=== PATIENT | male | born 1965 | race Caucasian/White ===

== ENCOUNTER 2017-03-29 03:36 | Inpatient (IN) | payer MEDICAID ==
[~2017-03-29] VITALS: Ht 175.3 cm; Wt 72.6 kg
[2017-03-29 03:42] VITALS: BP_SYST 102
[2017-03-29] MEDS ORDERED: NS 1000 ML BAG IV ONE (04:00)
[2017-03-29] MEDS ORDERED: ONDANSETRON HCL 4 MG/2 ML VIAL IVP ONE (04:15)
[2017-03-29] MEDS ORDERED: MORPHINE 2 MG/ML INJ. SYRINGE IVP ONE (04:15)
[2017-03-29 04:43] LABS: CALCIUM 9.2 mg/dL (8.4-11.0); CREATININE 1.19 mg/dL (0.55-1.30); POTASSIUM 4.2 mmol/L (3.5-5.1)
[2017-03-29 04:44] LABS: HEMATOCRIT 33.1 % (36-54); HEMOGLOBIN 10.6 g/dL (14.0-18.0); MEAN CORPUSCULAR HEMOGLOBIN 31 pg (27-31); MEAN CORPUSCULAR VOLUME 93 fL (79.0-98.0); RED BLOOD CELL COUNT(AUTO) 3.56 MIL/uL (4.2-6.2); WHITE BLOOD COUNT (AUTO) 10.3 K/uL (4.8-10.8)
[2017-03-29 04:45] LABS: MEAN CORPUSCULAR HGB CONC 33 % (32-36); PLATELET COUNT (AUTO) 316 K/uL (130-430); RED CELL DISTRIBUTION WIDTH 12.4 % (9.0-15.0)
[2017-03-29] MEDS ORDERED: PANTOPRAZOLE SODIUM 40 MG/VIAL (PROTONIX) IVP ONE (04:45)
[2017-03-29 04:46] LABS: EOSINOPHILS % (AUTO) 1.4 % (0.0-4.0)
[2017-03-29 04:47] LABS: ALBUMIN 3.4 g/dL (3.4-4.8); BASOPHILS % (AUTO) 0.9 % (0.0-2.0); LYMPHOCYTES % (AUTO) 22.1 % (20.5-51.5); NEUTROPHILS % (AUTO) 69.8 % (40.0-70.0); TOTAL BILIRUBIN 0.3 mg/dL (0.0-1.0)
[2017-03-29 04:48] LABS: BASOPHILS # (AUTO) 0.1 K/uL (0.0-0.2); EOSINOPHILS # (AUTO) 0.6 K/uL (0.0-0.4); LYMPHOCYTES # (AUTO) 2.3 K/uL (1.0-5.5); MONOCYTES # (AUTO) 0.6 K/uL (0.0-1.0); MONOCYTES % (AUTO) 5.8 % (1.7-9.3); NEUTROPHILS # (AUTO) 7.2 K/uL (1.8-7.7)
[2017-03-29 05:03] LABS: INR 1.1 (0.80-1.20); PROTHROMBIN TIME 10.8 SECS (9.5-12.5)
[2017-03-29] MEDS ORDERED: ONDANSETRON HCL 4 MG/2 ML VIAL IVP PRN (05:45)
[2017-03-29] MEDS ORDERED: ACETAMINOPHEN 325 MG TABLET PO PRN (05:45)
[2017-03-29 05:59] VITALS: BP_SYST 113
[2017-03-29 06:41] LABS: BILIRUBIN,URINE NEGATIVE (NEGATIVE); BLOOD, URINE NEGATIVE (NEGATIVE); CLARITY/URINE CLEAR (CLEAR); COLOR,URINE YELLOW (YELLOW); GLUCOSE,URINE NEGATIVE (NEGATIVE); KETONES,URINE NEGATIVE (NEGATIVE); LEUKOCYTE ESTERASE ,URINE NEGATIVE (NEGATIVE); NITRITE, URINE NEGATIVE (NEGATIVE); PH,URINE 6.5 (5.0-8.0); PROTEIN URINE NEGATIVE (NEGATIVE); UROBILINOGEN,URINE 0.2 (0.2-1.0)
[2017-03-29 07:03] LABS: FREE T4 (FREE THYROXINE) 0.6 ng/dL (0.6-1.6); PHOSPHORUS 2.9 mg/dL (2.7-4.5); THYROID STIMULATING HORMONE 2.75 uIu/mL (0.34-4.82)
[2017-03-29] MEDS: NACL 0.9% 1,000 ML IV SCH ×3 (07:23→22:11)
[2017-03-29 08:49] VITALS: BP_SYST 108
[2017-03-29] MEDS: DOCUSATE SODIUM 100 MG CAPSULE PO SCH ×2 (09:00→21:00)
[2017-03-29] MEDS: PIPERACILLIN/TAZO 3.375 GM in NS 50 ML IV SCH ×2 (09:13→13:39)
[2017-03-29] MEDS: PANTOPRAZOLE SODIUM 40 MG/VIAL (PROTONIX) IVP SCH (09:19)
[2017-03-29 12:05] VITALS: BP_SYST 100
[2017-03-29] MEDS ORDERED: BISACODYL 10 MG/SUPPOSITORY RC PRN (14:00)
[2017-03-29] MEDS ORDERED: LORazepam 2 MG/ML VIAL IVP PRN (14:00)
[2017-03-29] MEDS ORDERED: POTASSIUM CHLORIDE 20 MEQ TAB.PRT.SR PO PRN (14:00)
[2017-03-29] MEDS ORDERED: SIMETHICONE 80 MG TAB.CHEW PO PRN (14:00)
[2017-03-29] MEDS ORDERED: ZOLPIDEM TARTRATE 5 MG TABLET PO PRN (14:00)
[2017-03-29] MEDS: MORPHINE 2 MG/ML INJ. SYRINGE IVP PRN (14:01)
[2017-03-29 16:12] VITALS: BP_SYST 99
[2017-03-29] MEDS ORDERED: BISACODYL 5 MG TABLET.DR (DULCOLAX) PO ONE (17:00)
[2017-03-29] MEDS ORDERED: GOLYTELY / COLYTE SOLUTION 4 LITERS PO ONE (18:00)
[2017-03-29 20:00] VITALS: BP_SYST 108
[2017-03-30] VITALS: BP_SYST 112
[2017-03-30] MEDS: MORPHINE 2 MG/ML INJ. SYRINGE IVP PRN ×2 (01:03→21:01)
[2017-03-30 06:24] LABS: HEMOGLOBIN A1C 5.4 % (4.8-5.6)
[2017-03-30 06:52] LABS: BASOPHILS % (AUTO) 0.4 % (0.0-2.0); EOSINOPHILS # (AUTO) 0.3 K/uL (0.0-0.4); EOSINOPHILS % (AUTO) 3.1 % (0.0-4.0); HEMATOCRIT 26.9 % (36-54); HEMOGLOBIN 8.9 g/dL (14.0-18.0); LYMPHOCYTES # (AUTO) 2.8 K/uL (1.0-5.5); MEAN CORPUSCULAR HEMOGLOBIN 31 pg (27-31); MEAN CORPUSCULAR HGB CONC 33 % (32-36); MEAN CORPUSCULAR VOLUME 94 fL (79.0-98.0); MONOCYTES # (AUTO) 0.4 K/uL (0.0-1.0); MONOCYTES % (AUTO) 4.4 % (1.7-9.3); NEUTROPHILS # (AUTO) 6.3 K/uL (1.8-7.7); NEUTROPHILS % (AUTO) 63.1 % (40.0-70.0); PLATELET COUNT (AUTO) 279 K/uL (130-430); RED BLOOD CELL COUNT(AUTO) 2.88 MIL/uL (4.2-6.2); RED CELL DISTRIBUTION WIDTH 12.4 % (9.0-15.0); WHITE BLOOD COUNT (AUTO) 9.8 K/uL (4.8-10.8)
[2017-03-30 07:00] LABS: PROTHROMBIN TIME 10.4 SECS (9.5-12.5)
[2017-03-30 07:23] LABS: CALCIUM 8.3 mg/dL (8.4-11.0); CREATININE 0.92 mg/dL (0.55-1.30); PHOSPHORUS 2.6 mg/dL (2.7-4.5)
[2017-03-30] MEDS ORDERED: FLU VACC QS 2017-18(36MOS+)/PF 0.5 ML/SYR SYRINGE I.M. PRN (07:45)
[2017-03-30 08:00] VITALS: BP_SYST 138
[2017-03-30] MEDS ORDERED: EPINEPHrine JECT 1 MG/10 ML SYR IVP ONE (08:00)
[2017-03-30 08:16] LABS: T4 (THYROXINE) 5.9 ug/dL (4.5-12.0)
[2017-03-30] MEDS: MIDAZOLAM HCL 5 MG/5 ML VIAL ONE ×4 (08:37→09:10)
[2017-03-30] MEDS: MEPERIDINE HCL/PF 100 MG/ML AMP ONE ×2 (08:37→08:40)
[2017-03-30] MEDS ORDERED: SIMETHICONE 40 MG/0.6 ML ML ONE (08:41)
[2017-03-30 10:00] VITALS: BP_SYST 137
[2017-03-30 10:15] VITALS: BP_SYST 132
[2017-03-30] MEDS: DOCUSATE SODIUM 100 MG CAPSULE PO SCH ×2 (10:18→20:47)
[2017-03-30] MEDS: PANTOPRAZOLE SODIUM 40 MG/VIAL (PROTONIX) IVP SCH (10:18)
[2017-03-30 10:27] VITALS: BP_SYST 141
[2017-03-30] MEDS: NACL 0.9% 1,000 ML IV SCH ×3 (14:51→23:44)
[2017-03-30 17:07] VITALS: BP_SYST 129
[2017-03-31 00:38] VITALS: BP_SYST 116
[2017-03-31 04:42] VITALS: BP_SYST 112
[2017-03-31 07:09] LABS: BASOPHILS % (AUTO) 0.2 % (0.0-2.0); EOSINOPHILS # (AUTO) 0.3 K/uL (0.0-0.4); EOSINOPHILS % (AUTO) 3.6 % (0.0-4.0); HEMATOCRIT 24.7 % (36-54); HEMOGLOBIN 8.5 g/dL (14.0-18.0); LYMPHOCYTES # (AUTO) 2.2 K/uL (1.0-5.5); LYMPHOCYTES % (AUTO) 23.6 % (20.5-51.5); MEAN CORPUSCULAR HEMOGLOBIN 32 pg (27-31); MEAN CORPUSCULAR HGB CONC 34 % (32-36); MEAN CORPUSCULAR VOLUME 93 fL (79.0-98.0); MONOCYTES # (AUTO) 0.5 K/uL (0.0-1.0); MONOCYTES % (AUTO) 5.4 % (1.7-9.3); NEUTROPHILS # (AUTO) 6.2 K/uL (1.8-7.7); NEUTROPHILS % (AUTO) 67.2 % (40.0-70.0); PLATELET COUNT (AUTO) 277 K/uL (130-430); RED BLOOD CELL COUNT(AUTO) 2.66 MIL/uL (4.2-6.2); RED CELL DISTRIBUTION WIDTH 12.4 % (9.0-15.0); WHITE BLOOD COUNT (AUTO) 9.2 K/uL (4.8-10.8)
[2017-03-31 07:18] LABS: CALCIUM 8.9 mg/dL (8.4-11.0); CREATININE 0.89 mg/dL (0.55-1.30); POTASSIUM 4.1 mmol/L (3.5-5.1)
[2017-03-31 08:00] VITALS: BP_SYST 131
[2017-03-31] MEDS: DOCUSATE SODIUM 100 MG CAPSULE PO SCH (08:59)
[2017-03-31] MEDS: PANTOPRAZOLE SODIUM 40 MG/VIAL (PROTONIX) IVP SCH (09:00)
[2017-03-31] MEDS ORDERED: PRO40 PO (10:04)
[2017-03-31] MEDS ORDERED: ACET-2165 PO (10:12)
== END 2017-03-31 11:20 | disposition home or self-care (01) | DRG 241 ==
LOC: SED 03:36 → STU 05:39 → SMU 13:13
PROVIDERS: ADMIT Family Medicine; ATTEND Family Medicine
PROC: 0DJD8ZZ Inspection of Lower Intestinal Tract, Via Natural or Artificial Opening Endoscopic (ICD-10-PCS; 2017-03-30)
PROC: 0W3P8ZZ Control Bleeding in Gastrointestinal Tract, Via Natural or Artificial Opening Endoscopic (ICD-10-PCS; principal; 2017-03-30 08:30)
PROC: 3E0G8GC Introduction of Other Therapeutic Substance into Upper GI, Via Natural or Artificial Opening Endoscopic (ICD-10-PCS; 2017-03-30 08:30)
PROC: 0DB68ZX Excision of Stomach, Via Natural or Artificial Opening Endoscopic, Diagnostic (ICD-10-PCS; 2017-03-30 08:30)
DX: K25.4 Chronic or unspecified gastric ulcer with hemorrhage (principal); I10 Essential (primary) hypertension; F10.20 Alcohol dependence, uncomplicated; F17.200 Nicotine dependence, unspecified, uncomplicated; D62 Acute posthemorrhagic anemia; K57.30 Diverticulosis of large intestine without perforation or abscess without bleeding; K64.9 Unspecified hemorrhoids; K44.9 Diaphragmatic hernia without obstruction or gangrene; K29.70 Gastritis, unspecified, without bleeding; K52.9 Noninfective gastroenteritis and colitis, unspecified; F19.10 Other psychoactive substance abuse, uncomplicated; K21.9 Gastro-esophageal reflux disease without esophagitis; Z87.11 Personal history of peptic ulcer disease; Z71.41 Alcohol abuse counseling and surveillance of alcoholic
CPT/HCPCS: 36415; 43239; 43255; 45378; 71010; 80048; 80053; 80061; 81003; 82150-TC; 83036; 83605; 83690-TC; 83735-TC; 83880; 84100-TC; 84436; 84439; 84443-TC; 84479; 84484; 85025; 85610-TC; 85730-TC; 86886; 86900; 86901; 87081; 93005; 96361; 96374; 96375; 99285; C9113; J0171; J2175; J2250; J2270; J2405; J2543; J7030

== ENCOUNTER 2019-07-06 02:37 | Emergency (ER) | payer MEDICAID ==
[~2019-07-06] VITALS: Ht 172.7 cm; Wt 72.6 kg
[~2019-07-06 02:37] MED LIST: ACET-2165 PO; PRO40 PO
[2019-07-06 02:40] VITALS: BP_SYST 132
--- NOTE | 2019-07-06 02:40 | NUR ---
Patient triaged and placed in waiting room. VSS and patient appears in no acute distress at this time. Accompanied by FAM MEMBER, awaiting available bed, and MD notified of need for MSE.
--- NOTE | 2019-07-06 03:48 | NUR ---
Patient to ER bed 6 to gown for evaluation. Side rails up.
--- NOTE | 2019-07-06 03:57 | NUR ---
ER Dr. Rouse at bedside examining patient.
[2019-07-06] MEDS ORDERED: TERBUTALINE SULFATE 1 MG/ML VIAL SUBCUT ONE (04:00)
--- NOTE | 2019-07-06 04:10 | NUR ---
ASSUMED CARE. HERE WITH A CHIEF COMPLAINT OF PAINFUL ERECTION (PRIAPISM) SINCE 0830 YESTERDAY. SEEN AND EXAMINED BY ER-MD. BLOOD DRAWN BY DENTAL EQUIPMENT REPAIRER. TORADOL 60 MG IM AND TERBUTALINE SULFATE 0.25 MG SQ GIVEN ORDERED.
[2019-07-06] MEDS ORDERED: KETOROLAC TROMETHAMINE 60 MG/2 ML VIAL IM ONE (04:15)
[2019-07-06 04:27] LABS: BASOPHILS % (AUTO) 0.2 % (0.0-2.0); EOSINOPHILS # (AUTO) 0.1 K/uL (0.0-0.4); EOSINOPHILS % (AUTO) 1.3 % (0.0-4.0); HEMATOCRIT 40.4 % (36-54); HEMOGLOBIN 13.6 g/dL (14.0-18.0); LYMPHOCYTES # (AUTO) 1.8 K/uL (1.0-5.5); LYMPHOCYTES % (AUTO) 16.7 % (20.5-51.5); MEAN CORPUSCULAR HEMOGLOBIN 31 pg (27-31); MEAN CORPUSCULAR HGB CONC 34 % (32-36); MEAN CORPUSCULAR VOLUME 93 fL (79.0-98.0); MONOCYTES # (AUTO) 0.6 K/uL (0.0-1.0); MONOCYTES % (AUTO) 5.4 % (1.7-9.3); NEUTROPHILS % (AUTO) 76.4 % (40.0-70.0); PLATELET COUNT (AUTO) 364 K/uL (130-430); RED BLOOD CELL COUNT(AUTO) 4.34 MIL/uL (4.2-6.2); RED CELL DISTRIBUTION WIDTH 13.1 % (9.0-15.0); WHITE BLOOD COUNT (AUTO) 10.5 K/uL (4.8-10.8)
[2019-07-06 04:29] LABS: CALCIUM 8.8 mg/dL (8.4-11.0); CREATININE 1.11 mg/dL (0.55-1.30); POTASSIUM 4.1 mmol/L (3.5-5.1)
[2019-07-06 04:33] LABS: PROTHROMBIN TIME 9.9 SECS (9.5-12.5)
[2019-07-06 04:35] LABS: ALBUMIN 3.3 g/dL (3.4-4.8); TOTAL BILIRUBIN 0.3 mg/dL (0.0-1.0)
--- NOTE | 2019-07-06 04:44 | NUR ---
VERBALIZED SOME IMPROVEMENT OF PAIN (7/10) BUT NOT THE PENILE ERECTION. ER-MD AWARE AND PT.FOR POSSIBLE TRANSFER FOR UROLOGY SERVICE.
--- NOTE | 2019-07-06 06:10 | NUR ---
VERBALIZED WORSENING OF PAIN BACK TO 9/10. STILL (+) ERECTION. WILL NOTIFY MD. OTHERWISE VS STABLE.
--- NOTE | 2019-07-06 06:28 | NUR ---
GAUGE 18 IV LINE ESTABLISHED TO THE RIGHT HAND.
--- NOTE | 2019-07-06 06:35 | NUR ---
PT. HAS BEEN ACCEPTED AT [facility] UNDER THE SERVICE OF . PT.MADE AWARE AND ACKNOWLEDGEMENT OF TRANSFER FORM SIGNED BY .
--- NOTE | 2019-07-06 07:20 | NUR ---
ENDORSED CARE TO [facility] ARMAND ESCAMILLA.
--- NOTE | 2019-07-06 07:25 | NUR ---
report received from Rodney
--- NOTE | 2019-07-06 08:15 | NUR ---
Pt sleeping in bed, at bedside. Vitals signs stable
--- NOTE | 2019-07-06 08:43 | NUR ---
spoke w/ Malia from the transfer center . HS from [facility] is aware and is working on a tele bed assignment
[2019-07-06] MEDS ORDERED: KETAMINE 30 MG/3 ML SYRINGE 15 MG in NS 100 ML IV ONE (09:30)
[2019-07-06] MEDS ORDERED: MORPHINE 4 MG/ML INJ. SYRINGE IVP ONE ×2 (09:30→15:15)
[2019-07-06] MEDS ORDERED: KETAMINE 30 MG/3 ML SYRINGE ONE (09:48)
--- NOTE | 2019-07-06 09:53 | NUR ---
Ketamine infusion started per MD order. Side effects explained to the pt.
[2019-07-06] MEDS ORDERED: PHENYLEPHRINE HCL 10 MG/ML VIAL (NEOSYNEPHRINE) IVP ONE (11:00)
--- NOTE | 2019-07-06 11:30 | NUR ---
Pt has no pain at this time, states he still has erection present
[2019-07-06] MEDS ORDERED: LIDOCAINE 1% 10 MG/ML, 20 ML MDV INJ ONE (12:15)
--- NOTE | 2019-07-06 12:22 | NUR ---
Dr. Parr at the bedside injecting the pt w/ phenylephrine.
[2019-07-06] MEDS ORDERED: LIDOCAINE 1%, 20 ML MDV 20 ML ONE (12:28)
--- NOTE | 2019-07-06 12:40 | NUR ---
Pt tolerated injection, no relief from medication given at this time. Will continue monitor.
--- NOTE | 2019-07-06 13:34 | NUR ---
pt sleeping in bed comfortably, VSS
--- NOTE | 2019-07-06 14:56 | NUR ---
Pt accepted to [facility] for higher level of care. Accepting Dr. Bucio to ER. # for report [phone]. BLS eta [id number].
--- NOTE | 2019-07-06 16:09 | NUR ---
Report given to Maureen at [facility] regarding pt. Pt will be traveling by S ambulance ETA [id number]
[2019-07-06 17:33] VITALS: BP_SYST 124
--- NOTE | 2019-07-06 17:33 | NUR ---
Patient to be transferred to [facility]. Is being transferred due to higher level of care. Receiving facility has accepting physician and available space. ER physician has signed transfer form. Patient or responsible republican has agreed to transfer and signed form. Patient belongings inventoried and will be sent with patient. Copy of nursing notes, lab reports, EKG, Physicians Orders and X-rays to be sent with patient. Report called to MIR at receiving facility. Receiving physician is DR RHOADES. [facility] ambulance service has been called for transfer.
--- NOTE | 2019-07-06 18:10 | NUR ---
Patient to be transferred to [facility]. Is being transferred due to higher level of care. Receiving facility has accepting physician and available space. ER physician has signed transfer form. Patient or responsible democrat has agreed to transfer and signed form. Patient belongings inventoried and will be sent with patient. Copy of nursing notes, lab reports, EKG, Physicians Orders and X-rays to be sent with patient. Report called to Maureen BAILEY at receiving facility. Receiving physician is Dr. Jackson. [facility] ambulance service has been called for transfer. Iv is on the LAC 18g patent and infusing well.
== END 2019-07-06 17:33 | disposition short-term general hospital (02) ==
LOC: SED 02:37
DX: N48.30 Priapism, unspecified (principal); F17.210 Nicotine dependence, cigarettes, uncomplicated
CPT/HCPCS: 36415; 80053; 85025; 85610; 96365; 96372; 96375; 96376; 99285; J1885; J2001; J2270; J2370; J3105; 99283